=== PATIENT | female | born 1985 | race African-American/Black ===

== ENCOUNTER 2016-08-17 12:54 | Emergency (ER) | payer OTHER ==
--- NOTE | ~2016-08-17 | US134 ---
[facility] A Service of [facility] RADIOLOGY TEXT RESULTS PATIENT: ERIC VITAL LOCATION: [place] : 87 UNIT #: [id number] AGE: [address]: Veto Mac MD SEX: F ORDER DR: [id number] [facility] [address] [place], [place] [address] [id number] MR#: [id number] Acc #: [id number] NAME: ERIC VITAL : 1985 SEX: F STUDY DATE/TIME: 08/17/2016 14:52 UNIT: [facility] ROOM: STUDY DESCRIPTION: US Transvaginal Attending Physician: Veto Mac M.D. Ordering Physician: Veto Mac M.D. MEDICAL IMAGING REPORT This report is preliminary unless electronic signature is present EXAM Pelvic ultrasound, endovaginal study. HISTORY Pelvic pain for 4 days. FINDINGS Endovaginal ultrasound examination pelvis demonstrates multiple simple cysts in both ovaries, measuring up to nearly 6 cm in the left ovary and nearly 3 cm in the right ovary. No associated septations, nodularity or wall thickening. Blood flow is noted in both ovaries on color Doppler. No endometrial thickening or endometrial fluid. The uterine contour is normal. There is a 5 mm incidental cyst in the uterine fundus. No free fluid in the pelvis. IMPRESSION Blood flow is noted in both ovaries on color Doppler. No free fluid in the pelvis. There are multiple simple cysts in both ovaries, likely incidental and physiologic. No endometrial thickening or endometrial fluid. Incidental 5 mm cyst in the uterine fundus. Dictated by... Marcos Diane M.D. THIS IS AN ELECTRONICALLY VERIFIED REPORT Marcos Diane M.D. at 08/17/2016 10:49 PM DFL/pcl TD: 08/17/2016 17:15 JOB #: [id number] [facility] A Service [facility] RADIOLOGY TEXT RESULTS PATIENT: ERIC VITAL LOCATION: [place] : 87 UNIT #: [id number] AGE: [address]: Veto Mac MD SEX: F ORDER DR: MEDICAL IMAGING REPORT Page 1 of 1 COPY
[2016-08-17 13:15] LABS: BASOPHIL# 0.1 X10e3 (0-0.3); EOSINOPHIL# 0.2 X10e3 (0-0.7); EOSINOPHIL% 3.5 % (0.0-7.0); HEMATOCRIT 41.4 % (35.0-45.0); HEMOGLOBIN 13.6 gm/dL (12.0-16.0); LYMPHOCYTE# 1.8 X10e3 (1.0-3.5); LYMPHOCYTE% 30.6 % (17.0-45.0); MEAN CORPUSCULAR HEMOGLOBIN 28.1 PG (28-34); MEAN CORPUSCULAR HGB CONC 32.7 g/dL (30-36); MEAN PLATELET VOLUME 10.7 FL (6.5-11.5); MONOCYTE# 0.5 X10e3 (0-1.0); MONOCYTE% 8.7 % (3.0-12.0); NEUTROPHIL# 3.2 X10e3 (1.5-7.1); NEUTROPHIL% 56.2 % (40-75); PLATELET COUNT 200 X10e3 (140-420); RED BLOOD COUNT 4.82 X10e (3.90-5.30); RED CELL DISTRIBUTION WIDTH 15.1 % (11.0-15.5); WHITE BLOOD COUNT 5.7 X10e3 (4.0-10.5)
[2016-08-17 13:16] LABS: DIFF IND NO
[2016-08-17 13:31] LABS: URINE SOURCE CLEAN CATCH
[2016-08-17 13:43] LABS: URINE APPEARANCE CLEAR; URINE BILIRUBIN NEG (NEG); URINE BLOOD TRACE (NEG); URINE COLOR YELLOW; URINE GLUCOSE NEG (NEG); URINE KETONE NEG (NEG); URINE LEUKOCYTE ESTERASE TRACE (NEG); URINE NITRATE NEG (NEG); URINE PH 5.5 (5-8); URINE PROTEIN NEG (NEG); URINE SPECIFIC GRAVITY 1.023 (1.003-1.035); URINE UROBILINOGEN 0.2 MG/DL (NEG)
[2016-08-17 13:44] LABS: ALBUMIN SERUM 3.7 g/dL (3.5-5.0); ALKALINE PHOSPHATASE 43 U/L (32-92); ALT (SGPT) 12 U/L (10-40); AMYLASE 16 U/L (0-46); AST (SGOT) 13 U/L (10-42); BILIRUBIN,TOTAL 0.5 mg/dL (0.2-2.0); BLOOD UREA NITROGEN 10 mg/dL (9-23); BUN/CREATININE RATIO 11.11; CALCIUM SERUM 9.1 mg/dL (8.4-10.2); CARBON DIOXIDE 24 mmol/L (22-31); CHLORIDE 104 mmol/L (100-111); CREATININE SERUM 0.9 mg/dL (0.6-1.4); GLOM FILT RATE Estimated 100.2 mL/min (>60); GLUCOSE FASTING 111 mg/dL (70-110); LIPASE 21 U/L (22-51); POTASSIUM 3.5 mmol/L (3.5-5.1); PROTEIN TOTAL SERUM 7.1 g/dL (6.0-8.3); SODIUM 136 mmol/L (135-145)
[2016-08-17 13:45] LABS: CULTURE INDICATED? YES; URINE BACTERIA AUWI 3+ (NEGATIVE); URINE SQUAMOUS EPITHELIAL CELL FEW /[HPF]
[2016-08-17 13:46] LABS: BILIRUBIN, DIRECT <0.1 mg/dL (0.0-0.2); BILIRUBIN,INDIRECT 0.4 mg/dL (0.0-0.9)
[2016-08-17 13:54] LABS: URINE CRYSTALS CALCIUM OXALATE /[HPF]
[2016-08-19 16:45] LABS: CHLAMYDIA TRACH Not Detected (Not Detected); N GONOR Not Detected (Not Detected)
== END 2016-08-17 19:27 | disposition home or self-care (01) ==
LOC: CED 12:54
PROVIDERS: Emergency Medicine
DX: R10.32 Left lower quadrant pain (principal); A59.9 Trichomoniasis, unspecified; Z90.49 Acquired absence of other specified parts of digestive tract
CPT/HCPCS: 76830; 80048; 80076; 81003; 82150; 83690; 84702; 84703; 85025; 87086; 87491; 87591; 87808; 87905; 99284